=== PATIENT | male | born 1975 | race African-American/Black ===

== ENCOUNTER 2020-09-16 01:35 | Emergency (ER) | payer BC, SELFPAY ==
[2020-09-16 01:40] VITALS: BP 154/108; PULSE 115; RESP 18; TEMP 36.9; O2SAT 100
[2020-09-16 03:00] VITALS: BP 138/78; PULSE 100; RESP 17; O2SAT 99
[2020-09-16] MEDS: SODIUM CHLORIDE 0.9% IV 1,000 ML 999 ML IV CONT (03:18)
[2020-09-16 03:36] LABS: Basophils Absolute Auto 0.1 K/mm3 (0.0-0.1); Basophils Percent Auto 0.7 % (0.2-1.2); Eosinophils Absolute Auto 0.2 K/mm3 (0-0.3); Eosinophils Percent Auto 1.3 % (0-4.4); Hematocrit 46.7 % (42.0-52.0); Hemoglobin 16.2 g/dL (14.0-18.0); Immature Granulocyte Absolute 0.04 K/mm3 (0.00-0.031); Immature Granulocyte Percent A 0.4 % (0-0.5); Lymphocytes Absolute Auto 2.16 K/mm3 (0.9-3.2); Lymphocytes Percent Auto 19.2 % (18.3-44.2); Mean Corpuscular HGB Conc 34.7 g/dl (32-36); Mean Corpuscular Hemoglobin 29.3 pg (26-34); Mean Corpuscular Volume 84.6 fl (80-100); Monocytes Absolute Auto 1.4 K/mm3 (0.1-0.6); Monocytes Percent Auto 12.2 % (2.6-8.5); Neutrophils Absolute Auto 7.5 K/mm3 (1.3-6.7); Neutrophils Percent Auto 66.2 % (45.5-73.1); Platelet Count Result 185 k/mm3 (150-375); Red Blood Count 5.52 M/mm3 (4.6-6.20); Red Cell Distribution Width 12.4 % (11.5-14.5); White Blood Count 11.3 K/mm3 (4.5-10.0)
--- NOTE | 2020-09-16 03:37 | ED.SKABFB ---
HPI - Skin/Abscess/Foreign Bdy General Chief complaint: Skin/Abscess/Foreign Body Stated complaint: abscess in groin Time Seen by Provider: 09/16/20 02:53 History of Present Illness HPI narrative: Patient is a 45-year-old gentleman who presents to emergency department with chief complaint of cellulitis and abscess of his right inguinal area. The patient reports that he had an ingrown hair that he picked out and then noticed that he started having redness and swelling. Patient states he was seen in urgent care and started on doxycycline but has had continued to have progressive swelling and redness in that affected area the patient noticed there is a small wound that has been draining purulent material. Patient reports that he is also diabetic and is noticed that his blood sugars have been running high. Related Data Allergies Allergy/AdvReac Type Severity Reaction Status Date / Time BEE STINGS Allergy Hives Uncoded 09/16/20 02:28 Review of Systems Review of Systems: Narrative: CONSTITUTIONAL: Denies fever, chills, or sweats. EYES: Denies visual changes, redness, or discharge. ENT: Denies rhinorrhea, congestion, sore throat, or otalgia. CARDIOVASCULAR: Denies chest pain, palpitations, or edema. RESPIRATORY: Denies cough or dyspnea. GASTROINTESTINAL: Denies abdominal pain, nausea, vomiting, or diarrhea. GENITOURINARY: Denies dysuria or hematuria. SKIN: Denies rash or itching. MUSCULOSKELETAL: Denies back pain, joint pain, or myalgia. NEUROLOGIC: Denies headache, numbness, or weakness. PSYCHIATRIC: Denies anxiety or depression. A 10 system review of systems was completed on the patient and is negative except for what is stated in the HPI. Nursing and ancillary documentation was reviewed. PMFSH Comments Past medical history significant for diabetes PTSD Social history the patient denies illicit drug use Exam Narrative: Exam Narrative: GENERAL: Well-appearing, well-nourished, and in no acute distress. HEAD: Normocephalic, atraumatic. EYES: PERRLA and EOMI. ENT: Nares clear, no rhinorrhea or epistaxis. Mucous membranes moist. NECK: Supple. CHEST: Clear to auscultation. No respiratory distress. HEART: Regular rate and rhythm. No murmur heard. Normal peripheral pulses. ABDOMEN: Soft, nontender, nondistended, normal active bowel sounds. EXTREMITIES: Normal range of motion. No edema. SKIN: Warm, dry, no rash. There is erythema and induration of the right inguinal area there is a slight area of fluctuance at the site of a wound. NEURO: No focal deficits. Alert and oriented x3. PSYCH: Normal mood and affect. Course Course Emergency Course: After incision and drainage the patient is feeling much better at this time given his white blood cell count is not significantly elevated lactates normal patient's antibiotics will be changed to clindamycin and the patient will be discharged home Vital Signs Vital signs: Vital Signs Temperature 36.9 C 09/16/20 01:40 Pulse Rate 115 H 09/16/20 01:40 Respiratory Rate 18 09/16/20 01:40 Blood Pressure 154/108 H 09/16/20 01:40 Pulse Oximetry 100 09/16/20 01:40 Temperature 36.9 C 09/16/20 01:40 Pulse Rate 115 H 09/16/20 01:40 Respiratory Rate 18 09/16/20 01:40 Blood Pressure 154/108 H 09/16/20 01:40 Pulse Oximetry 100 09/16/20 01:40 Procedures Abscess I/D abdomen: Date of Incision: 09/16/20 Time of Incision: 03:39 Side (if applicable): right Local Anesthetic: lidocaine 1% Amount of anesthesia used (mL): 8 Technique: incised with #11 blade Amount of fluid expressed (mL): 5 Irrigation: Yes Packing used?: none I&D Results: Pus and Blood MDM - Skin/Abscess/Foreign Bdy Lab Data Result diagrams: 09/16/20 03:14 09/16/20 03:14 Labs: Lab Results 09/16/20 09/16/20 09/16/20 Range/Units 03:14 03:14 03:14 WBC 11.3 H (4.5-10.0) K/mm3 RBC 5.52 (4.6-6.20) M
[2020-09-16 03:50] LABS: Alanine Aminotransferase 30 U/L (4-50); Alkaline Phosphatase 89 U/L (38-126); Anion Gap 5 mmol/L (8-16); Aspartate Amino Transferase 23 U/L (17-59); Bilirubin,Total 0.6 mg/dL (0.2-1.3); Blood Urea Nitrogen 18 mg/dL (9-20); Calcium 9.4 mg/dL (8.4-10.2); Carbon Dioxide 33 mmol/L (22-30); Chloride 97 mmol/L (98-107); Estimated Glomerular Filt Rate > 60; Glucose 366 mg/dL (75-110); Potassium 4.3 mmol/L (3.4-5.0); Sodium 135 mmol/L (137-145)
[2020-09-16 03:51] LABS: Lactic Acid Reflex 1.1 mmol/L (0.7-2.1)
[2020-09-16] MEDS: CLINDAMYCIN HCL 150 MG CAP 300 MG PO (05:15)
[2020-09-16 05:21] VITALS: BP 147/88; PULSE 100; RESP 19; O2SAT 100
== END 2020-09-16 05:23 | disposition home or self-care (01) ==
PROVIDERS: Emergency Provider Emergency Medicine
DX: L02.214 Cutaneous abscess of groin (principal); L03.314 Cellulitis of groin; E11.9 Type 2 diabetes mellitus without complications
CPT/HCPCS: 10060; 36415; 80053; 83605; 85025; 87040; 96360; 99283; A9270; J7030

== ENCOUNTER 2021-10-15 13:20 | Emergency (ER) | payer BC, SELFPAY ==
[2021-10-15 13:24] VITALS: BP 160/92; PULSE 110; RESP 20; TEMP 36.4; O2SAT 98
[2021-10-15 15:46] VITALS: BP 144/87; PULSE 99; TEMP 37.1; O2SAT 97
--- NOTE | 2021-10-15 16:45 | ED.URI ---
HPI - URI/Sore Throat General Chief Complaint: Upper Respiratory Infection Stated Complaint: weak Time Seen by Provider: 10/15/21 16:38 Source: patient Mode of arrival: ambulatory Limitations: no limitations History of Present Illness HPI Narrative: Patient is a 46-year-old male complaining of cough, body aches, generalized weakness, fever and nausea that started early this morning. Patient states that he cannot keep anything down due to his nausea and he is diabetic. Patient states that his coworker tested positive for Covid last week. Patient denies any chest pain, shortness of breath, abdominal pain, nausea, vomiting, diarrhea. Related Data Allergies Allergy/AdvReac Type Severity Reaction Status Date / Time BEE STINGS Allergy Hives Uncoded 10/15/21 17:21 Review of Systems Review of Systems: All systems reviewed & are unremarkable except as noted in HPI and below Constitutional: Constitutional: Denies excessive sweating, Denies fatigue, Denies headache(s), Denies lethargy, Denies malaise, Denies weakness and Denies weight loss Eyes: Eyes: Denies blurry vision, Denies change in vision and Denies loss of vision ENT: Denies dizziness, Denies ear discharge, Denies headache(s), Denies lip swelling, Denies epistaxis, Denies neck pain, Denies throat swelling and Denies tongue swelling Cardiovascular: Cardiovascular: Denies chest pain, Denies chest pain at rest, Denies chest pain with activity, Denies diaphoresis, Denies rapid heart rate, Denies edema, Denies irregular heart rhythm, Denies lightheadedness, Denies palpitations, Denies dyspnea and Denies dyspnea on exertion Respiratory: Respiratory: Denies chest congestion, Denies hemoptysis, Denies dyspnea and Denies dyspnea on exertion Gastrointestinal: Gastrointestinal: Denies abdominal pain, Denies melena, Denies hematochezia, Denies diarrhea, Denies nausea, Denies vomiting and Denies hematemesis Musculoskeletal: Musculoskeletal: Denies abnormal gait, Denies deformity, Denies joint swelling, Denies limited range of motion, Denies neck pain and Denies numbness Neurologic: Denies Abnormal speech present, Denies abnormal gait, Denies confusion, Denies dizziness, Denies headache(s), Denies focal weakness, Denies loss of vision, Denies numbness, Denies Other visual disturbances, Denies Sensory deficit (Neuro) and Denies weakness Psychiatric: Psychiatric: Denies confusion, Denies depression, Denies auditory hallucinations, Denies homicidal ideation and Denies suicidal ideation Endocrine: Endocrine: Denies cold intolerance, Denies excessive sweating, Denies fatigue, Denies heat intolerance and Denies palpitations Hematologic/Lymphatic: Hematologic/Lymphatic: Denies easy bleeding and Denies easy bruising Allergic/Immunologic: Allergic/Immunologic: Denies lip swelling, Denies throat swelling and Denies tongue swelling PMFSH Comments Past medical history: None Family history: None Social history: Non-smoker no EtOH or drug use Exam Const: General: cooperative, healthy appearing, comfortable, no acute distress, well developed, alert and awake; No confusion Orientation/consciousness: oriented to person, oriented to place, oriented to time, patient oriented x3 and No confusion Limitations: no limitations HENMT: Head: normal to inspection, normocephalic and atraumatic Ears: hearing grossly normal bilaterally, TM normal on the right and TM normal on the left General nose exam: Normal external nose present, Normal nares present and No nasal discharge present Face and sinus: normal facial exam Mouth: Yes Normal oral and palatal mucosa present, Yes lip normal, Yes tongue normal and Yes oropharynx normal Throat: posterior oropharynx normal, tonsils normal and uvula midline Eyes: General: appearance normal, both eyes and all related structures Pupils: Equal, round and reactive pupils present EOM: EOMs intact bilaterally Neck: Neck: normal visual inspection, full ROM, no lymphadenopathy and no m
[2021-10-15] MEDS: LACTATED RINGERS 1,000 ML 999 ML IV CONT (17:13)
[2021-10-15] MEDS: PROMETHAZINE HCL 25 MG/ML AMPUL 12.5 MG IV PUSH (17:14)
[2021-10-15] MEDS: KETOROLAC 30 MG/ML VIAL (*BKC) IV PUSH (17:15)
[2021-10-15 17:29] LABS: Glucose Point of Care 166 mg/dl (65-105)
[2021-10-15 17:49] LABS: Basophils Absolute Auto 0.1 K/mm3 (0.0-0.1); Basophils Percent Auto 1.4 % (0.2-1.2); Eosinophils Absolute Auto 0.1 K/mm3 (0-0.3); Eosinophils Percent Auto 1.1 % (0-4.4); Hematocrit 48.7 % (42.0-52.0); Hemoglobin 16.3 g/dL (14.0-18.0); Immature Granulocyte Absolute 0.03 K/mm3 (0.00-0.031); Immature Granulocyte Percent A 0.5 % (0-0.5); Lymphocytes Absolute Auto 0.62 K/mm3 (0.9-3.2); Lymphocytes Percent Auto 11.1 % (18.3-44.2); Mean Corpuscular HGB Conc 33.5 g/dl (32-36); Mean Corpuscular Hemoglobin 28.5 pg (26-34); Mean Corpuscular Volume 85.1 fl (80-100); Mean Platelet Volume 10.9 fl (7.4-10.4); Monocytes Absolute Auto 1.2 K/mm3 (0.1-0.6); Monocytes Percent Auto 22.2 % (2.6-8.5); Neutrophils Absolute Auto 3.6 K/mm3 (1.3-6.7); Neutrophils Percent Auto 63.7 % (45.5-73.1); Platelet Count Result 178 k/mm3 (150-375); Red Blood Count 5.72 M/mm3 (4.6-6.20); Red Cell Distribution Width 12.9 % (11.5-14.5); White Blood Count 5.6 K/mm3 (4.5-10.0)
[2021-10-15 18:41] LABS: Anion Gap 8 mmol/L (8-16); Blood Urea Nitrogen 11 mg/dL (9-20); Carbon Dioxide 30 mmol/L (22-30); Chloride 99 mmol/L (98-107); Estimated CRCL calculation 116 ml/min; Estimated Glomerular Filt Rate > 60; Glucose 159 mg/dL (65-110); Potassium 4.5 mmol/L (3.4-5.0); Sodium 137 mmol/L (137-145)
[2021-10-15 19:25] VITALS: BP 152/88; PULSE 98; RESP 18; O2SAT 100
[2021-10-16 13:33] LABS: SARS-CoV-2 RNA PCR Positive
== END 2021-10-15 19:26 | disposition home or self-care (01) ==
PROVIDERS: Emergency Provider Emergency Medicine
DX: U07.1 COVID-19 (principal); Z91.030 Bee allergy status
CPT/HCPCS: 36415; 80048; 82948; 85025; 87804; 96361; 96374; 96375; 99284; C9803; J1885; J2550; J7120; U0003; U0005